=== PATIENT | male | born 1960 ===

== ENCOUNTER 2017-12-05 11:35 | Outpatient (CLI) | payer OTHER | END 2017-12-05 11:40 | disposition home or self-care (01) | LOC: RAD 501 11:35 | DX: M25.552 Pain in left hip (principal); M25.562 Pain in left knee ==

== ENCOUNTER → 2017-12-31 | Outpatient (CLI) | payer OTHER | END | disposition home or self-care (01) | LOC: LAB 15:55 | DX: D64.9 Anemia, unspecified (principal); M06.4 Inflammatory polyarthropathy; M25.462 Effusion, left knee; M10.9 Gout, unspecified ==

== ENCOUNTER → 2018-03-18 | Outpatient (CLI) | payer OTHER | END | disposition home or self-care (01) | LOC: RAD 14:01 | DX: M17.11 Unilateral primary osteoarthritis, right knee (principal) ==

== ENCOUNTER 2022-01-24 10:14 | Outpatient (CLI) | payer OTHER | END 2022-01-24 10:19 | disposition home or self-care (01) | LOC: RAD 10:14 | PROVIDERS: ATTEND Orthopaedic Surgery | DX: M25.562 Pain in left knee (principal); M25.552 Pain in left hip ==